=== PATIENT | female | born 1960 | race Caucasian/White ===

== ENCOUNTER → 2016-11-17 | Outpatient (CLI) | payer OTHER ==
--- NOTE | 2016-11-17 15:11 | DX ---
Left Foot, Four Views Clinical Indications: Chronic severe plantar fasciitis. Findings: No fracture or dislocation. No periosteal reaction or erosion. No radiopaque foreign bod y. Joint spaces have normal thickness. There is no evidence of calcaneal spurring or calcification. T here is a well-corticated calcification lateral and inferior to the cuboid. Impression: No fracture, dislocation, or calcaneal spurring.
== END ==
LOC: CIMAGING 14:06
PROVIDERS: ATTEND Podiatrist
DX: M72.2 Plantar fascial fibromatosis (principal); M77.32 Calcaneal spur, left foot
CPT/HCPCS: 73630-PO